=== PATIENT | male | born 1955 | race Caucasian/White ===

== ENCOUNTER 2020-10-08 13:01 | Outpatient (CLI) | payer MEDICARE, OTHER ==
--- NOTE | 2020-10-08 14:49 | MRI ---
EXAM: MRI left knee PROVIDED CLINICAL HISTORY: Pain COMPARISON: None FINDINGS: Mucinous degeneration of the anterior cruciate ligament is demonstrated. The posterior cruciate ligam ent, medial collateral ligament, lateral collateral ligamentous complex and extensor mechanism appear intact. There is complex nondisplaced degenerative tearing involving the body of the medial meniscus, extendi ng to involve the body-posterior horn junction. There is an irregular appearance to the free edge of the body of the lateral meniscus suspicious for radial tear. There is extensive full-thickness articular cartilage loss involving the central weightbearing portio ns of the medial femorotibial joint. Articular cartilage loss is seen involving the posterior aspects of the lateral femoral condyle, appearing full-thickness. Patellofemoral articular cartilage appears without focal defect. There is a large knee joint effusion with mild Underwood's cyst. Osteophyte formation is seen about the k nee. No focal concerning regional marrow or muscular signal abnormality is evident. IMPRESSION: 1. Mucinous degeneration of the ACL. 2. Medial and lateral meniscal tears. 3. 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 4. Large knee joint effusion with Underwood's cyst.
== END 2020-10-08 13:02 | disposition home or self-care (01) ==
LOC: TBSIIMAG 13:01
PROVIDERS: ATTEND Family Medicine
DX: M25.462 Effusion, left knee (principal); S83.282A Other tear of lateral meniscus, current injury, left knee, initial encounter; S83.242A Other tear of medial meniscus, current injury, left knee, initial encounter; M71.22 Synovial cyst of popliteal space [Baker], left knee; M23.92 Unspecified internal derangement of left knee